=== PATIENT | female | born 1970 | race Caucasian/White ===

== ENCOUNTER 2016-08-01 01:21 | Emergency (ER) | payer OTHER ==
[2016-08-01 01:36] VITALS: BP 135/80
[2016-08-01] MEDS ORDERED: ONDANSETRON HCL/PF 2 MG/ML VIAL IV ONE (02:00)
[2016-08-01] MEDS ORDERED: NORMAL SALINE 1,000 ML IV ONE (02:00)
--- NOTE | 2016-08-01 02:02 | ERNOTE ---
Abdominal HPI - General Chief Complaint: Abdominal Pain Time Seen by Provider: 08/01/16 01:48 Source: patient Exam Limitations: no limitations - Immun/Allergies/Home Medications Immunizatons: IMMUNIZATION HX Immunizations Up to Date Yes History of Influenza Vaccine Yes Hx Pneumococcal Vaccination No Allergies/Adverse Reactions: Allergies ceftriaxone sodium [From Rocephin] Allergy (Intermediate, Verified 08/01/16 01: 37) rash, itching, throat felt funny metronidazole Allergy (Verified 08/01/16 01:37) Home Medications: HOME MEDICATIONS Ibuprofen [Motrin] 400 mg PO Q6H PRN #30 tab 03/05/15 [Last Taken Unknown] Dicyclomine HCl [Bentyl] 10 mg PO TID #20 capsule 08/01/16 [Last Taken Unknown] Ondansetron HCl [Zofran] 1 - 2 mg PO Q8H PRN #10 tab 08/01/16 [Last Taken Unknown] - History of Present Illness Narrative: Went mushroom hunting on Saturday. She cooked and ate them as usual. Since then she has felt weak and had diarrhea. Began vomiting tonight and have increasing abdominal pain. Timing: getting worse Quality: moderate Associated Symptoms: Present: back pain Review of Systems - Review of Systems Constitutional: Absent: fever, chills EYE: Present: no symptoms reported ENT: Present: no symptoms reported Respiratory: Present: no symptoms reported Cardiology: Present: no symptoms reported Gastrointestinal/Abdominal: Present: See HPI, diarrhea Genitourinary: Present: decreased urinary output Musculoskeletal: Present: no symptoms reported Skin: Present: no symptoms reported Neurological: Present: no symptoms reported Endocrine: Present: no symptoms reported Hematologic/Lymphatic: Present: no symptoms reported Psych: Present: no symptoms reported - Patient's Past Medical History Patient History - Medical: No pertinent hx Patient History - Cardiac/Respiratory: Other Patient History - Cancer: No Hx of Cancer Patient History - Surgical Procedures: No surgical history Patient History - Other: None - Social History Living Situations: spouse Abuse History: No History of abuse Psych History: No pertinent hx Smoking Status: Current every day smoker Have you smoked in the past 12 months: Yes Do you dip or chew tobacco: No Alcohol Use: none Drug Use: none - Immunizations Immunizations Up to Date: Yes Hx Pneumococcal Vaccination: No History of Influenza Vaccine: Yes Physical Exam - Physical Exam General Appearance: Present: wd/wn, alert, mild distress Eye Exam: Normal inspection: bilateral Neck: Present: normal inspection, nontender Respiratory: Present: no respiratory distress Gastrointestinal/Abdominal: Present: normal bowel sounds, nondistended, soft, tenderness - RUQ and mid right side diffusely. Absent: guarding, rebound, McBurney sign Back Exam: Present: normal inspection, CVA tenderness (R) Extremity Exam: Present: normal inspection, normal range of motion Neurological Exam: Present: alert, oriented, normal mood/affect Skin Exam: Present: normal color, warm/dry ED Progress - Results and Orders Patient's Lab Results:: I have reviewed the patient's lab results. Results and Orders: Laboratory Tests 08/01/16 08/01/16 02:08 02:08 WBC 8.0 Hgb 12.0 L Hct 36.4 L Plt Count 334 Sodium 143 H Potassium 3.1 L Chloride 105 Carbon Dioxide 27.9 Anion Gap 13.2 BUN 6 Creatinine 0.71 Est GFR (Non-Af Amer) 95 BUN/Creatinine Ratio 8.5 L Random Glucose 94 Calcium 9.1 Total Bilirubin 0.3 AST 14 ALT 13 L Alkaline Phosphatase 56 Total Protein 7.4 Albumin 3.6 Amylase 40 Lipase 129 - Vital Signs Patient's Vital Signs:: I have reviewed the patient's vital signs. Vital Signs: Vital Signs 08/01/16 01:21 Temperature 36.8 C Pulse Rate 52 L Respiratory 18 Rate Blood Pressure 135/80 O2 Sat by Pulse 97 Oximetry - X-Ray X-Ray #1 X-Ray: abdomen Interpretation: Interp. by me X-ray Comments: Non-obstructive bowel gas pattern - CT/Ultrasound CT/Ultrasound Narrative: gallbladder is distended with pericholecystic fluid and wall thickening worrisome for cholecystitis. Moderate diffuse bladder wall thickening Several loops of mildly distended proximal small bowel with wall thickening concerning for enteritis. Appendix appears normal. - Progress/Reassessment Chief Complaint: Abdominal Pain Progress:: Improved Progress Note-Subjective: 08/01/16 03:13 nausea and abdominal cramping is improved. Still having back pain. Waiting on UA. 08/01/16 05:21 pt fells much better after toradol. No nausea or pain, able to sleep. Discussed incidental findings on CT and discussing these findings with her PCP and setting up futher work up. Pt expressed understanding Departure - Departure Clinical Impression: Gastroenteritis, Bladder wall thickening, Gallbladder dilatation Disposition: Home Follow Up Needed Condition: Good Instructions: Cholecystitis, [id number], Diarrhea, Adult, [id number] Additional Instructions: Take medication as needed for nausea and intestinal cramping. See your regular doctor in 5-7 days or sooner if symptoms return. Talk with your doctor about CT findings with your gallbladder and urinary bladder and follow up testing. Return to ER if symptoms worsen or are not controlled with medications. Collect stool cultures and return to lab. Referrals: Marguerite Prado FNP [[facility]] - Prescriptions: Dicyclomine HCl [Bentyl] 10 mg PO TID #20 capsule Ondansetron HCl [Zofran] 1 - 2 mg PO Q8H PRN #10 tab PRN Reason: Nausea
[2016-08-01] MEDS ORDERED: ONDANSETRON HCL/PF 2 MG/ML VIAL ONE (02:10)
[2016-08-01 02:21] LABS: Hematocrit 36.4 % (37.0-47.0); Mean Platelet Volume 9.2 fl (6.0-9.5); Neutrophil # 5.1 K/mm3 (1.3-6.0); Neutrophil % 62.9 % (42-75.0); Platelet Count 334 K/mm3 (150-450); Red Cell Distribution Width 14.3 % (11.5-14.0)
[2016-08-01 02:35] LABS: Albumin * 3.6 gm/dl (3.4-5.0); Anion Gap 13.2 mmol/L (6.8-13.8); BUN/Creatinine Ratio 8.5 (9.0-21.6); Bilirubin, Total 0.3 mg/dL (0.0-1.1); Ca. Corrected For Albumin 9.1 mg/dL (8.4-10.2); Calcium * 9.1 mg/dL (7.9-10.9); Carbon Dioxide 27.9 mmol/L (24-32.6); Potassium 3.1 mmol/L (3.4-4.6); Total Protein 7.4 gm/dL (6.2-8.2)
[2016-08-01 03:12] LABS: Urine Bilirubin 1 mg/dl (NEGATIVE); Urine Blood 50 /ul (NEGATIVE); Urine Ketone 5 mg/dL (NEGATIVE); Urine Nitrite Negative (NEGATIVE); Urine Protein Negative (NEGATIVE); Urine Specific Gravity >=1.030 SP.GR. (1.005-1.010); Urine Urobilinogen Normal (NORMAL)
[2016-08-01 03:27] LABS: Urine Amorphous Sediment Few - 1+ (NONE-FEW); Urine Appearance Clear; Urine Bacteria None Seen; Urine Color Yellow; Urine Mucus Few - 1+; Urine RBC 0-5 /hpf (0-5); Urine WBC None Seen /hpf (0-5)
[2016-08-01] MEDS ORDERED: KETOROLAC TROMETHAMINE 30 MG/ML VIAL IV ONE (03:49)
[2016-08-01] MEDS ORDERED: KETOROLAC TROMETHAMINE 30 MG/ML VIAL ONE (03:53)
[2016-08-01] MEDS ORDERED: DICYCLOMINE HCL 10 MG CAPSULE PO ONE (05:08)
[2016-08-01] MEDS ORDERED: ONDANSETRON 4 MG TAB.RAPDIS ONE ×2 (05:17→05:21)
[2016-08-01] MEDS ORDERED: DICYCLOMINE HCL 10 MG CAPSULE ONE (05:17)
[2016-08-01] MEDS: ONDANSETRON 4 MG TAB.RAPDIS PO ONE ×2 (05:29→05:30)
== END 2016-08-01 05:43 | disposition home or self-care (01) ==
LOC: ER 01:21
DX: K52.9 Noninfective gastroenteritis and colitis, unspecified (principal); K82.8 Other specified diseases of gallbladder; N32.89 Other specified disorders of bladder; F17.210 Nicotine dependence, cigarettes, uncomplicated

== ENCOUNTER 2016-08-24 06:51 | Day surgery (SDC) | payer OTHER ==
[~2016-08-24 06:51] MED LIST: RINGERS SOLUTION,LACTATED 1,000 ML IV PRN; VANCOMYCIN HCL 1 GM in DEXTROSE 5 % IN WATER 250 ML IV PRN
[2016-08-24] MEDS ORDERED: RINGERS SOLUTION,LACTATED 1,000 ML IV ONE (07:25)
[2016-08-24] MEDS ORDERED: BUPIVACAINE HCL/EPINEPHRINE 50 ML VIAL IJ ONE (09:04)
--- NOTE | 2016-08-24 09:26 | OR ---
Operative Report - Dictated Report Narrative: Date: 08/24/2016 PREOP DX: Symptomatic cholelithiasis, left ovarian cyst POSTOP DX: same PROC: Lap uriah Staff surgeon: Jas Donald MD Anes: GETA EBL: Min Comps: None apparent Specimen: Gallbladder, picture of left ovarian cyst Description: Pt placed in supine position and following the smooth induction of GETA the abdomen was prepped and draped in a sterile fashion. All port sites anesthetized with marcaine prior to incision. A 5mm umbilical incision was made and a veres needle was introduce with intraperitoneal placement confirmed with the hanging drop test. Abdomen insufflated to 15mmHg with CO2. LLQ 5mm blunt port placed under direct vision. Blunt probe used to expose left ovary and photo taken. Had appearance of a simple cyst. Superior midline 12mm and two left flank 5mm ports placed under direct vision. Fund of GB grasped and elevated to diaphragm. Infundibulum grasped for countertraction. Cystic duct and artery isolated doubly clipped and divided individually. Gallbladder removed from fossa with electrocautery and scissor dissection and placed in endocatch bag. Gallbladder removed intact and 12mm port returned to abdomen and pneumoperitoneum re-established. Inspection reveals hemostasis and no bile leak. Pneumoperitoneum evacuated and ports removed. Midline fascia approximated with heavy vicryl suture. Incisions closed with subcuticular 4-0 vicryl and sealed with dermabond. Pt tolerated procedure well without apparent complications and was discharge from the OR in stable condition.
[2016-08-24] MEDS ORDERED: MORPHINE SULFATE 4 MG/ML SYRG IV PRN (10:09)
[2016-08-24] MEDS ORDERED: ONDANSETRON HCL/PF 2 MG/ML VIAL IV PRN (10:09)
[2016-08-24] MEDS: HYDROcodone/ACETAMINOPHEN 1 EACH TABLET PO PRN ×2 (10:26→12:37)
[2016-08-24 13:13] VITALS: BP 127/70
== END 2016-08-24 06:52 | disposition home or self-care (01) ==
LOC: AMB 06:51
PROVIDERS: ATTEND Specialist
PROC: 0FT44ZZ Resection of Gallbladder, Percutaneous Endoscopic Approach (ICD-10-PCS; principal; 2016-08-24 08:05)
DX: K80.10 Calculus of gallbladder with chronic cholecystitis without obstruction (principal); N83.202 Unspecified ovarian cyst, left side; F17.200 Nicotine dependence, unspecified, uncomplicated; Z68.1 Body mass index [BMI] 19.9 or less, adult